=== PATIENT | female | born 1950 | race Caucasian/White ===

== ENCOUNTER 2017-05-28 15:54 | Observation (INO) | payer MEDICARE, BC ==
[2017-05-28] MEDS ORDERED: Aspirin Low Dose CHEW TAB* 81 MG PO ONE (16:03)
[2017-05-28] MEDS ORDERED: Nitroglycerin TAB 0.4 MG* 0.4 MG TAB SL ONE (16:12)
[2017-05-28 16:41] LABS: Hematocrit 40 % (35-47); Mean Corpuscular HGB Conc 35 g/dl (31-36); Mean Corpuscular Hemoglobin 31 pg (27-31); Mean Corpuscular Volume 91 fL (80-97); Mean Platelet Volume 7 um3 (7.4-10.4); Red Blood Count 4.46 10^6/ul (4.0-5.4); Red Cell Distribution Width 14 % (10.5-15); White Blood Count 7.1 10^3/ul (3.5-10.8)
--- NOTE | 2017-05-28 16:51 | RAD ---
HISTORY: Chest pain COMPARISONS: January 19, 2014 VIEWS:1: Single frontal portable view of the chest at 4:31 PM FINDINGS: LINES AND TUBES: None. CARDIOMEDIASTINAL SILHOUETTE: The cardiomediastinal silhouette is normal for portable technique. PLEURA: The costophrenic angles are sharp. No pleural abnormalities are noted. LUNG PARENCHYMA: The lungs are clear. ABDOMEN: The upper abdomen is clear. There is no subphrenic gas. BONES AND SOFT TISSUES: There is linear curvature of the spine IMPRESSION: NO ACTIVE CARDIOPULMONARY DISEASE.
[2017-05-28 16:58] LABS: Albumin 4.1 g/dL (3.2-5.2); BUN/Creatinine Ratio 21.8 (8-20); Calcium 8.8 mg/dL (8.6-10.3); EGFR Non-African American 73.9 (>60); Globulin 2.7 g/dL (2-4); Potassium 3.9 mmol/L (3.5-5.0); Total Bilirubin 0.4 mg/dL (0.2-1.0); Total Protein 6.8 g/dL (6.4-8.9)
[2017-05-28] MEDS ORDERED: Iohexol 350* (CONTRAST) 500 ML MDV IV ONE (17:06)
--- NOTE | 2017-05-28 17:38 | RAD ---
HISTORY: Chest pain, shortness of breath COMPARISONS: June 09, 2012 TECHNIQUE: Multiple contiguous axial CT scans of the chest were obtained after the administration of nonionic intravenous contrast, timed to the pulmonary arterial phase of contrast enhancement.. Coronal and sagittal multiplanar reformations are also submitted for review. FINDINGS: NECK AND THYROID: The lower neck and thyroid are unremarkable. CHEST WALL: There is no lower cervical, axillary, or supraclavicular lymphadenopathy by size criteria. The patient is status post bilateral breast augmentation/reconstruction HEART AND PERICARDIUM: The heart is unremarkable. AORTA AND PULMONARY VASCULATURE: There is no pulmonary arterial filling defect to suggest pulmonary embolism. There is no linear filling defect within the aorta to suggest aortic dissection. There is ectasia of ascending thoracic aorta, similar to the previous examination. MEDIASTINUM: There is no mediastinal lymphadenopathy by size criteria. MACARIO: There is no hilar lymphadenopathy by size criteria. AIRWAY AND ESOPHAGUS: The airway is unremarkable, without endobronchial filling defect. The esophagus is grossly normal. LUNG PARENCHYMA: There is stable minimal centrilobular nodularity of the lingula right middle lobe. PLEURA: No pleural abnormalities are noted. UPPER ABDOMEN: There is a small sliding hiatal hernia. BONES AND SOFT TISSUES: Degenerative changes are noted OTHER: None. IMPRESSION: 1. NO PULMONARY ARTERIAL FILLING DEFECT TO SUGGEST PULMONARY EMBOLISM. 2. STABLE ECTASIA OF ASCENDING THORACIC AORTA. 3. PERSISTENT CENTRILOBULAR NODULARITY OF THE RIGHT MIDDLE LOBE AND LINGULA SUGGESTIVE OF AN AIRWAY CENTERED INFLAMMATORY OR INFECTIOUS PROCESS
[2017-05-28] MEDS ORDERED: Nitroglycerin 2% OINT* 1 GM PAK TOPICAL ONE (18:00)
[2017-05-28] MEDS ORDERED: Ondansetron INJ* 2 MG/ML VIAL IV PRN (18:45)
[2017-05-28] MEDS ORDERED: Acetaminophen TAB* 325 MG PO PRN (18:45)
[2017-05-28] MEDS ORDERED: Albuterol 2.5 MG/3 ML NEB.SOL* (0.083%) INH PRN (18:56)
[2017-05-28] MEDS ORDERED: CMC:Melatonin (NF) 3 MG TAB PO PRN (20:07)
[2017-05-28] MEDS ORDERED: Calcium Carbonate CHEW TAB* 500 MG (TUMS) PO PRN (20:07)
[2017-05-28] MEDS: amLODIPine TAB* 5 MG PO SCH (20:16)
[2017-05-28] MEDS ORDERED: Carbidopa/Levodop 25/100 MG TAB(*) PO SCH (21:00)
[2017-05-28] MEDS ORDERED: Famotidine TAB* 20 MG PO SCH (21:00)
[2017-05-28] MEDS: Heparin VIAL(*) 5000 UNITS/ML VIAL (FIVE THOUSAND) SUBCUT SCH (22:15)
[2017-05-29] MEDS ORDERED: ALPRAZolam TAB* 0.25 MG PO ONE (02:36)
[2017-05-29 05:05] LABS: Hematocrit 40 % (35-47); Hemoglobin 13.8 g/dl (12.0-16.0); Mean Corpuscular HGB Conc 34 g/dl (31-36); Mean Corpuscular Hemoglobin 31 pg (27-31); Mean Corpuscular Volume 92 fL (80-97); Mean Platelet Volume 8 um3 (7.4-10.4); Red Blood Count 4.39 10^6/ul (4.0-5.4); Red Cell Distribution Width 14 % (10.5-15)
[2017-05-29 05:16] LABS: BUN/Creatinine Ratio 20.5 (8-20); EGFR African American 102.6 (>60); EGFR Non-African American 79.8 (>60); HDL Cholesterol 64.4 mg/dL; Potassium 3.8 mmol/L (3.5-5.0)
[2017-05-29] MEDS: Heparin VIAL(*) 5000 UNITS/ML VIAL (FIVE THOUSAND) SUBCUT SCH (06:12)
--- NOTE | 2017-05-29 06:20 | HP ---
CC: Dr. Verdin * HISTORY AND PHYSICAL: DATE OF ADMISSION: 05/28/17. PRIMARY CARE PROVIDER: Dr. Verdin. ATTENDING PHYSICIAN WHILE IN THE HOSPITAL: Tejal Her MD * (report dictated by Hernandez Lee NP). CHIEF COMPLAINT: Chest pain. HISTORY OF PRESENT ILLNESS: Mrs. Quinn is a 66-year-old female patient. She has a history of GERD, asthma, anxiety, hypertension, pulmonary hypertension, hyperlipidemia, and restless leg syndrome. She comes into the ER today stating that today around 10 o'clock, she had an episode of substernal chest discomfort radiating down her arm. She does state that the discomfort lasted a few minutes and then it went away. She was driving, doing errands with her today and then around 3:30, she received a phone call from her sister that caused her some distress and she had to go outside. When she was walking outside and by the time she got out there, she was having chest discomfort and pressure in the substernal area and going down the left arm. It lasted about an hour. By the time she got to the ER, it was getting better, but it went away completely with nitroglycerin tablets. She did feel shortness of breath with this. She did say she got nauseated and because of the chest discomfort, she went back inside, told her that there was something going on and she need to be evaluated and so she came to the hospital. There has been no reports of change of medications. She did state that she took her blood pressure medication late today. She denied having any abdominal pain. There has been no vomiting. No dysuria. No fevers. She denied having any calf pain or leg pain. No recent trips or travel. She was concerned because of the chest pressure and because of her family history, so she came into the ER, was evaluated. We were asked to evaluate her for admission because of the risk of her acute coronary syndrome. REVIEW OF SYSTEMS: There is no documented fever. She denies having any significant weight change. There was no double vision. There is no ear discharge. She denied having any rhinorrhea. No sore throat. No thyroid enlargement. Denied having any chest pain currently, but she did have some per HPI. There is no shortness of breath. There is no abdominal pain. There was nausea with chest pain. No dysuria. No frequency. No seizure. No loss of consciousness. No pruritus and no skin ulcerations. Review of 14 systems completed, all others negative. PAST MEDICAL HISTORY: Significant for: 1. GERD. 2. Anxiety. 3. Asthma. 4. Hypertension. 5. Pulmonary hypertension. 6. Restless legs syndrome. 7. Hyperlipidemia. PAST SURGICAL HISTORY: She has had:. 1. An appendectomy. 2. Breast augmentation. 3. . 4. Total hip arthroplasty. FAMILY HISTORY: Mother had a history of breast cancer and father had a history of CAD. SOCIAL HISTORY: She is a former smoker. She does drink about 1 beer a day. Surrogate decision maker is her . ALLERGIES TO MEDICATIONS: Include no known drug allergies. HOME MEDS: The home meds according to the patient's own recall include: 1. Levocetirizine 5 mg daily. 2. Carbidopa-levodopa 1 tablet at bedtime as needed for restless leg. 3. Aspirin 81 mg daily. 4. Ranitidine 150 mg at bedtime. 5. Toprol XL 25 mg daily. 6. Valtrex 500 mg daily. 7. Omeprazole 40 mg daily. 8. Norvasc 5 mg daily. PHYSICAL EXAMINATION GENERAL: At this time, Mrs. Quinn is a 66-year-old female patient. She appears to be well-nourished, well-developed. She does not appear to be in any acute distress. VITAL SIGNS: Blood pressure 150/94, pulse is 67, respirations 18, O2 sat 98%, temperature 98.9. HEENT: Head is atraumatic and normocephalic. Eyes: EOMs are intact. Sclerae anicteric, and not pale. Throat: Oral mucosa appears to be moist. No oropharyngeal erythema. NECK: Supple. LUNGS: Clear to auscultation bilaterally. No wheezes, rales, or rhonchi. HEART: Sounds S1, S2. Regular rate and rhythm. No murmurs, rubs, or gallops. ABDOMEN: Soft, flat, nontender. Bowel sounds are present. EXTREMITIES: Pulses were 2+ throughout. She is able to move all 4 extremities with 5/5 strength. NEUROLOGIC: The patient is awake, alert, oriented x3. Tongue is midline. Silhouette Artist are equal. No gross focal deficits. Skin: Intact. LABORATORY DATA: Labs today reveal a WBC of 7.1, RBC of 4.46, hemoglobin 14.0 , hematocrit of 40, and platelet count of 236. Sodium was 134, potassium was 3.9, chloride of 102, bicarb of 25, BUN 17, creatinine of 0.98, glucose of 88, lactic of 0.9, calcium 8.8, total bili 0.4, AST 22, ALT 23, alkaline phos 54, troponin 0, albumin of 4.1. She did have a chest thorax CTA, which revealed no pulmonary arterial filling defect to suggest PE. Showed stable ectasia of the ascending thoracic aorta. Persistent central lobar nodularity of the right middle lobe and lingula suggestive of an airway centered inflammation and infectious process. She did have a chest x- ray, which showed no active cardiopulmonary disease. There was an EKG obtained today, which showed normal sinus rhythm. She did have what looks like diffuse ST depression. I reviewed a previous EKG. It appears to be similar depression. She does have a rate of 82. No ST elevation was noted. Old medical records were reviewed. ASSESSMENT AND PLAN: Mrs. Quinn is a 66-year-old female patient coming into the hospital today with complaints of chest discomfort radiating down the left arm, in addition to this also having some associated nausea. She will be admitted under observation inpatient status for: 1. Chest pain. At this point, we will go ahead and cycle her troponins, place her on telemetry. She is on a beta-malini already, we will continue. We will continue aspirin, check lipids, A1c, stress in the morning and cycle her troponins and follow closely. 2. GERD. Continue Zantac, PPI therapy. 3. Asthma. We will put her on p.r.n. albuterol. 4. Anxiety. Continue with supportive care. 5. Hypertension. Blood pressure down here is in the 150. I did order an extra dose of her Norvasc and I will continue with this and we will follow the blood pressure closely. 6. Pulmonary hypertension. Follow with her primary. 7. Hyperlipidemia. Continue diet modifications. We are checking a lipid panel in the morning. 8. Restless leg. Continue carbidopa-levodopa. 9. Lung nodularity. She can follow this up with her primary care provider. 9. DVT prophylaxis. She will be placed on heparin subcu. 10. Code status. She is a full code. 11. Fluids, electrolytes, and nutrition. She can have a heart healthy diet and n.p.o. after midnight. TIME SPENT: On this admission 60 minutes, greater than half the time was spent [id number] with the patient obtaining my history and physical, the other time spent going over the plan of care with the patient and implementing the plan of care. I did discuss the plan of care with my attending, Dr. Her; she is in agreement. HERNANDEZ LEE, LOY [id number]/[facility] #: [id number] FRANKIE
[2017-05-29 07:50] VITALS: BP 127/68
[2017-05-29] MEDS ORDERED: Polyethylene Glycol 3350* 17 GM PACKET PO SCH (09:00)
[2017-05-29] MEDS ORDERED: ValACYclovir (*) 500 MG TAB PO SCH (09:00)
[2017-05-29] MEDS ORDERED: Aspirin EC Low Dose* 81 MG TAB.EC PO SCH (09:00)
[2017-05-29] MEDS ORDERED: Aspirin Low Dose CHEW TAB* 81 MG PO SCH (09:00)
[2017-05-29] MEDS ORDERED: Metoprolol Succinate XL TAB* 25 MG PO SCH (09:00)
[2017-05-29] MEDS ORDERED: Omeprazole CAP* 20 MG PO SCH (09:00)
--- NOTE | 2017-05-29 11:38 | RAD ---
Edited for charges. INDICATION: Chest pain. COMPARISON: Comparison is made with a prior study from June 20, 2012. Technique: A single day myocardial perfusion stress study was performed. Initially a resting study was performed. The patient was given an intravenous injection of 10.1 mCi of technetium 99m tetrofosmin and and the heart was imaged in multiple projections. The patient returned later in the day and under the direction of Dr. Wogn, the patient was exercised to a peak heart rate of 185 beats per minute which was 120% of the maximum predicted heart rate. Subsequently the patient was given intravenous injection of 25.5 mCi of technetium 99m tetrofosmin and the heart was imaged in multiple projections. Images were reconstructed in the axial, sagittal and coronal planes and in a 3- D format. FINDINGS: There appears to be normal wall motion and myocardial thickening. The left ventricular ejection fraction was calculated to be 74%. Review of the images demonstrates normal distribution of radial pharmaceutical. IMPRESSION: NO EVIDENCE FOR INFARCT OR ISCHEMIA. ASSESSMENT: Low risk. Based on imaging criteria from ACC/AHA 2002 Guideline Update for the Management of Patients With Chronic Stable Angina Table 23. Noninvasive Risk Stratification. MTDD
[2017-05-29] MEDS: amLODIPine TAB* 5 MG PO SCH (11:51)
[2017-05-29] MEDS ORDERED: Cetirizine* 10 MG TAB PO SCH (21:00)
--- NOTE | 2017-05-30 01:25 | DS ---
CC: Dr. Verdin * DISCHARGE SUMMARY: DATE OF ADMISSION: DATE OF DISCHARGE: 05/29/17 HISTORY OF PRESENT ILLNESS: This 66-year-old woman presented with chest pain and nausea. The pain radiated down the left arm. This occurred after a period of particular stress. She has noted this over the past few months that when she has psychological stress, she tends to get this chest pain. The patient was admitted to a telemetry unit. She had 3 troponins, all of which were within normal limits. She underwent a nuclear medicine stress test on the day of discharge. This showed no evidence for infarct or ischemia. Ejection fraction was estimated to be 74%. The patient was discharged on her usual home medications. FINAL DIAGNOSES: 1. Atypical chest pain. 2. Hypertension. 3. Restless leg syndrome. 4. History of asthma. 5. History of gastroesophageal reflux disease. 6. History of hyperlipidemia. 7. Right middle lobe and lingula nodularity seen on CT scan. Suggestive of inflammatory or infectious process. DISCHARGE MEDICATIONS: 1. Omeprazole 40 mg daily. 2. Valacyclovir 500 mg daily. 3. Levocetirizine 5 mg daily. 4. Carbidopa/levodopa 25/100 one tab at h.s. 5. Aspirin 81 mg daily. 6. Ranitidine 150 mg h.s. 7. Metoprolol succinate 25 mg daily. 8. Amlodipine 5 mg daily. 9. Polyethylene glycol 17 g daily. 10. Melatonin 3 mg p.r.n. [id number]/[facility] #: [id number] MTDD
== END 2017-05-29 14:55 | disposition home or self-care (01) ==
LOC: ED 15:54 → MEDTELE 19:10
PROVIDERS: ADMIT Internal Medicine; ATTEND Internal Medicine
DX: R07.89 Other chest pain (principal); M79.602 Pain in left arm; Z73.3 Stress, not elsewhere classified; I10 Essential (primary) hypertension; G25.81 Restless legs syndrome; J45.909 Unspecified asthma, uncomplicated; K21.9 Gastro-esophageal reflux disease without esophagitis; E78.5 Hyperlipidemia, unspecified; R91.8 Other nonspecific abnormal finding of lung field; Z79.899 Other long term (current) drug therapy
CPT/HCPCS: 36415; 71010; 71275; 78452; 80048; 80053; 80061; 83036; 83605; 84484; 85025; 87641; 93005; 93017; 94760; 99284; A9270-GY; A9502; G0378; J1644; Q9967

== ENCOUNTER 2024-10-25 16:24 | Inpatient (IN) ==
[2024-10-25] MEDS ORDERED: Albuterol HFA INHALER 8 gm MDI INH PRN (21:28)
[2024-10-25] MEDS ORDERED: Heparin 5000 UNITS/ML 1 mL VIAL IV SCH (22:00)
[2024-10-25] MEDS: Heparin DRIP 25,000 UNITS BAG 25,000 UNITS/250 ML BAG IV SCH (22:18)
[2024-10-25] MEDS: NS 0.9% 1000 ml BAG 1,000 ML IV SCH (22:24)
[2024-10-26 04:49] LABS: ABS Eosinophils 0.2 10^3/uL (0.0-0.5); ABS Monocytes 0.6 10^3/uL (0.0-0.9); ABS Neutrophils 4.1 10^3/uL (1.5-7.6); Eosinophil % 2.7 %; Hematocrit 31.9 % (35-45); Hemoglobin 11.5 g/dL (11.5-14.3); Lymphocyte % 16.6 %; Mean Corpuscular Hemoglobin 32.5 pg (27-33); Mean Corpuscular Hgb Conc 36.1 g/dL (31-36); Mean Corpuscular Volume 90.1 fL (80-97); Nucleated Red Blood Cells % 0.1 %/100WBC (0.0-0.8); Platelet Count 154 10^3/uL (150-450); Red Blood Count 3.54 10^6/uL (3.63-4.92); Red Cell Distribution Width 12.3 % (12-17); White Blood Count 5.9 10^3/uL (3.8-11.8)
[2024-10-26 05:37] LABS: Calcium 7.3 mg/dL (8.6-10.3); Creatinine, Serum 0.54 mg/dL (0.51-0.95); Magnesium 2.2 mg/dL (1.9-2.7); Potassium 3.3 mmol/L (3.5-5.0); eGFR CKD-EPI 96.6 (>60)
[2024-10-26] MEDS: Ondansetron 4 mg VIAL 2 MG/ML 2 ml VIAL IV PRN (09:31)
[2024-10-26] MEDS: Lidocaine PATCH 5% PATCH TRANSDERM ONE (16:53)
[2024-10-26] MEDS: ROTIGOTINE 2 MG TOPICAL SCH (16:56)
[2024-10-27] MEDS: Potassium Chlor 20 meq TAB.ER PO ONE (05:05)
[2024-10-27] MEDS: KCL 20 MEQ/100 ML IVPREMIX 20 MEQ/100 ML BAG IV ONE (05:54)
[2024-10-27 09:22] LABS: Anion Gap 9 mmol/L (2-16); Blood Urea Nitrogen 8 mg/dL (6-24); CO2 Carbon Dioxide 25 mmol/L (22-32); Calcium 7.8 mg/dL (8.6-10.3); Chloride 98 mmol/L (101-111); Creatinine, Serum 0.59 mg/dL (0.51-0.95); Glucose 129 mg/dL (70-100); Magnesium 2.3 mg/dL (1.9-2.7); Sodium 132 mmol/L (135-145); eGFR CKD-EPI 94.5 (>60)
[2024-10-27 11:23] LABS: Phosphorus 1.9 mg/dL (2.5-5.0); Potassium Redraw 4.2 mmol/L (3.5-5.0)
[2024-10-27] MEDS: ROTIGOTINE 2 MG TOPICAL SCH (15:53)
[2024-10-28 06:49] LABS: ABS Eosinophils 0.2 10^3/uL (0.0-0.5); ABS Monocytes 0.6 10^3/uL (0.0-0.9); ABS Neutrophils 4.6 10^3/uL (1.5-7.6); Eosinophil % 2.9 %; Hematocrit 38.1 % (35-45); Hemoglobin 13.7 g/dL (11.5-14.3); Lymphocyte % 15.2 %; Mean Corpuscular Hemoglobin 32.4 pg (27-33); Mean Platelet Volume 7.6 fL (7.5-11.2); Nucleated Red Blood Cells % 0.1 %/100WBC (0.0-0.8); Platelet Count 207 10^3/uL (150-450); Red Blood Count 4.23 10^6/uL (3.63-4.92); Red Cell Distribution Width 12.8 % (12-17); White Blood Count 6.4 10^3/uL (3.8-11.8)
[2024-10-28 07:01] LABS: Creatinine, Serum 0.59 mg/dL (0.51-0.95); Magnesium 2.2 mg/dL (1.9-2.7); eGFR CKD-EPI 94.5 (>60)
[2024-10-28] MEDS ORDERED: fentaNYL 100 mcg/2 ml 50 MCG/ML VIAL ONE (08:08)
[2024-10-28] MEDS ORDERED: Midazolam 5 mg/5 ml VIAL 1 mg/ml 5 ml VIAL (5 mg) ONE (08:08)
[2024-10-28] MEDS ORDERED: Heparin 1,000 UNIT/ML 10 ml (10,000 UNITS) CATHLAB/DIALYSIS ONE (08:08)
[2024-10-28] MEDS ORDERED: VERAPAMIL 2.5 MG/ML 2 ML VIAL ** 5 mg/2 ml ONE (08:08)
[2024-10-28] MEDS ORDERED: Heparin 2 UNITS/ML 1000 mls 2,000 ML IV ONE (08:09)
[2024-10-28] MEDS ORDERED: Lidocaine 1% MPF 5 ML VIAL ONE (08:09)
[2024-10-28] MEDS ORDERED: Iohexol 350 (CONTRAST) 200 ML MDV IV ONE (08:09)
[2024-10-28] MEDS ORDERED: nitroGLYCERIN DRIP 50,000 MCG/250 ML BTL ONE (08:11)
[2024-10-28] MEDS: fentaNYL 100 mcg/2 ml 50 MCG/ML VIAL IV SLOW PU ONE (09:25)
[2024-10-28] MEDS: Midazolam 10 mg/10 ml VIAL 1 mg/ml 10 ml VIAL (10 mg) IV SLOW PU ONE (09:25)
[2024-10-28] MEDS: NS 0.9% 1000 ml BAG 1,000 ML IV SCH (09:45)
[2024-10-28 13:35] LABS: HDL Cholesterol 49.9 mg/dL
[2024-10-28 17:08] VITALS: BP 160/70
== END 2024-10-28 17:30 | disposition home or self-care (01) | DRG 281 ==
LOC: SUATTDRO 19:44 → INTOOBSV 19:44 → MEDTELE 19:44
PROVIDERS: ADMIT Student in an Organized Health Care Education/Training Program; ATTEND Internal Medicine